=== PATIENT | female | born 1970 | race African-American/Black ===

== ENCOUNTER 2017-02-17 14:12 | Emergency (ER) | payer BC, OTHER ==
[~2017-02-17] VITALS: Ht 157.5 cm; Wt 70.3 kg
--- NOTE | ~2017-02-17 | CT71 ---
[facility] A Service of [facility] RADIOLOGY TEXT RESULTS PATIENT: ELIZ JIMÉNEZ LOCATION: [facility] : 68 UNIT #: [id number] AGE: [address]: Kvng Gomes MD SEX: F ORDER DR: [id number] [id number] [facility]. [place], [place] [address] [id number] E MR#: [id number] Acc #: [id number] NAME: ELIZ JIMÉNEZ : 1970 SEX: F STUDY DATE/TIME: 02/17/2017 15:11 UNIT: [facility] ROOM: STUDY DESCRIPTION: CT Head Wo Contrast Attending Physician: Kvng Gomes M.D. Ordering Physician: Kvng Gomes M.D. Primary Care Physician: No Primary Care Physician MEDICAL IMAGING REPORT This report is preliminary unless electronic signature is present EXAM CT head without contrast dated 02/17/17. COMPARISON None. HISTORY Headache and dizziness since 02/13/17. FINDINGS CT of the head was obtained without contrast in the axial plane as per the protocol. Axial noncontrast images were obtained from the skull base to the vertex. This CT exam was performed with one or more of the following radiation dose reduction techniques: automatic exposure control, adjustment of mA and/or kV according to patient size, and iterative reconstruction. Ventricular size and configuration are normal. There is no evidence of acute infarct or hemorrhage. There are no extra-axial fluid collections. No mass lesion or mass effect is seen. There are no skull fractures. IMPRESSION Normal noncontrast head CT. Dictated by... Christian Washburn M.D. THIS IS AN ELECTRONICALLY VERIFIED REPORT Christian Washburn M.D. at 02/19/2017 9:15 PM CPR/pc TD: 02/18/2017 12:27 JOB #: [id number] [facility] A Service [facility] RADIOLOGY TEXT RESULTS PATIENT: ELIZ JIMÉNEZ LOCATION: [facility] : 68 UNIT #: [id number] AGE: [address]: Kvng Gomes MD SEX: F ORDER DR: MEDICAL IMAGING REPORT Page 1 of 1 COPY
[~2017-02-17 14:12] MED LIST: AMOXICILLIN250 MG PO; COLACE PO; DICLOFENAC PO; NAPROSYN500 MG PO; [UNRECOGNIZED DRUG - CODE] PO
[2017-02-17 15:00] LABS: BASOPHIL% 0.6 % (0-2.5); DIFF IND NO; EOSINOPHIL# 0.1 X10e3 (0-0.7); EOSINOPHIL% 0.8 % (0.0-7.0); HEMATOCRIT 33.6 % (35.0-45.0); HEMOGLOBIN 11.3 gm/dL (12.0-16.0); LYMPHOCYTE# 1.6 X10e3 (1.0-3.5); LYMPHOCYTE% 22.3 % (17.0-45.0); MEAN CELL VOLUME 90.8 FL (83-96); MEAN CORPUSCULAR HEMOGLOBIN 30.5 PG (28-34); MEAN CORPUSCULAR HGB CONC 33.6 g/dL (30-36); MEAN PLATELET VOLUME 7.3 FL (6.5-11.5); MONOCYTE# 0.4 X10e3 (0-1.0); MONOCYTE% 5.2 % (3.0-12.0); NEUTROPHIL% 71.1 % (40-75); PLATELET COUNT 361 X10e3 (140-420); WHITE BLOOD COUNT 7.1 X10e3 (4.0-10.5)
[2017-02-17 15:38] LABS: BILIRUBIN, DIRECT 0.1 mg/dL (0.0-0.2); BILIRUBIN,INDIRECT 0.3 mg/dL (0.0-0.9); BILIRUBIN,TOTAL 0.4 mg/dL (0.2-2.0); BUN/CREATININE RATIO 13.33; CALCIUM SERUM 8.8 mg/dL (8.4-10.2); CREATININE SERUM 0.9 mg/dL (0.6-1.4); GLOM FILT RATE Estimated 88.3 mL/min (>60); POTASSIUM 4.2 mmol/L (3.5-5.1); PROTEIN TOTAL SERUM 7.6 g/dL (6.0-8.3)
== END 2017-02-17 16:40 | disposition home or self-care (01) ==
LOC: CED 14:12
PROVIDERS: Emergency Medicine
DX: R51 Headache (principal); Z90.710 Acquired absence of both cervix and uterus; Z88.2 Allergy status to sulfonamides; Z88.5 Allergy status to narcotic agent
CPT/HCPCS: 36415; 70450; 80048; 80076; 85025; 96361; 96372; 96374; 96375; 99284; J1100; J1885; J2405; J3360